=== PATIENT | male | born 1960 | race Caucasian/White ===

== ENCOUNTER → 2017-12-22 | Outpatient (CLI) | payer OTHER ==
[~2017-12-22] MED LIST: CLON-365 PO; LISI1TAB7 PO; OXYC5TAB2 PO; REGADENOSON 0.4 MG/5 ML SYRINGE ONE
== END | disposition home or self-care (01) ==
LOC: CFH 09:33
PROVIDERS: ATTEND Physician Assistant Medical
DX: R07.89 Other chest pain (principal)
CPT/HCPCS: 78452; 93017; A9502; J2785

== ENCOUNTER 2018-06-05 10:55 | Emergency (ER) | payer OTHER ==
[~2018-06-05] VITALS: Ht 172.7 cm; Wt 99.1 kg
[~2018-06-05 10:55] MED LIST changes: -CLON-365 PO; +CLON1TAB11 PO; -REGADENOSON 0.4 MG/5 ML SYRINGE ONE
[2018-06-05] MEDS ORDERED: ASPI-515 PO (11:30)
[2018-06-05] MEDS ORDERED: HYDR12.53 PO (11:31)
[2018-06-05] MEDS ORDERED: CYCL5TAB PO (11:31)
[2018-06-05] MEDS ORDERED: HIGH CHOL (11:31)
[2018-06-05] MEDS ORDERED: LISI2.5T PO (11:31)
[2018-06-05] MEDS ORDERED: GABA-827 PO (11:32)
[2018-06-05] MEDS ORDERED: NAPR220C2 PO (11:33)
[2018-06-05] MEDS ORDERED: AMIT10TA PO (11:33)
[2018-06-05 11:57] LABS: BASOPHILS # (AUTO) 0.04 x10^3/uL (0-0.1); BASOPHILS % (AUTO) 0 % (0-1); EOSINOPHILS # (AUTO) 0.32 x10^3/uL (0-0.4); EOSINOPHILS % (AUTO) 3 % (1-7); LYMPHOCYTES # (AUTO) 2.39 x10^3/uL (1-3.4); LYMPHOCYTES % (AUTO) 24 % (22-44); MD NO; MEAN CORPUSCULAR HGB CONC 34.5 g/dL (33.2-36.2); MEAN CORPUSCULAR VOLUME 92.6 fL (81-97); MEAN PLATELET VOLUME 9.3 fL (7.4-10.4); MONOCYTES # (AUTO) 0.69 x10^3/uL (0.2-0.8); MONOCYTES % (AUTO) 7 % (2-9); NEUTROPHILS # (AUTO) 6.54 x10^3/uL (1.8-6.8); NEUTROPHILS % (AUTO) 66 % (42-75); PLATELET COUNT 222 x10^3/uL (130-400); RED BLOOD COUNT 4.83 x10^6/uL (4.38-5.82); RED CELL DISTRIBUTION WIDTH 13.3 % (9.4-14.8)
[2018-06-05 12:11] LABS: ALBUMIN 3.8 g/dL (3.4-5.0); ANION GAP 9 mmol/L (5-15); CALCIUM 8.8 mg/dL (8.5-10.1); CHLORIDE 104 mmol/L (98-107)
[2018-06-05 12:17] LABS: ALANINE AMINOTRANSFERASE 42 U/L (12-78); ALKALINE PHOSPHATASE 73 U/L (45-117); BILIRUBIN,TOTAL 0.5 mg/dL (0.2-1.0); CREATININE 0.88 mg/dL (0.7-1.3); TOTAL PROTEIN 7.6 g/dL (6.4-8.2); TROPONIN I < 0.015 ng/mL (0.000-0.045)
[2018-06-05 13:24] VITALS: BP 152/77
== END 2018-06-05 13:29 | disposition home or self-care (01) ==
LOC: ED 11:19
DX: S29.011A Strain of muscle and tendon of front wall of thorax, initial encounter (principal); M94.0 Chondrocostal junction syndrome [Tietze]; I11.9 Hypertensive heart disease without heart failure; G89.29 Other chronic pain; Z90.89 Acquired absence of other organs; Z87.891 Personal history of nicotine dependence; X58.XXXA Exposure to other specified factors, initial encounter; Y93.89 Activity, other specified; Y92.89 Other specified places as the place of occurrence of the external cause; Y99.8 Other external cause status
CPT/HCPCS: 36415; 71046; 80053; 84484; 85025; 93005; 99285

== ENCOUNTER 2019-03-07 06:12 | Day surgery (SDC) | payer OTHER ==
[~2019-03-07] VITALS: Ht 170.2 cm; Wt 108.3 kg
[2019-03-07 06:49] VITALS: BP 112/78
== END 2019-03-07 10:50 | disposition home or self-care (01) ==
LOC: OUT 06:12 → EDSTATUS 08:00 → OUT 10:50
PROVIDERS: ATTEND Internal Medicine Geriatric Medicine
DX: K73.9 Chronic hepatitis, unspecified (principal); K76.0 Fatty (change of) liver, not elsewhere classified; K74.60 Unspecified cirrhosis of liver; I10 Essential (primary) hypertension; J44.9 Chronic obstructive pulmonary disease, unspecified; E66.9 Obesity, unspecified; Z68.36 Body mass index [BMI] 36.0-36.9, adult; Z79.899 Other long term (current) drug therapy; Z87.891 Personal history of nicotine dependence; Z98.1 Arthrodesis status; Z98.890 Other specified postprocedural states; Z82.49 Family history of ischemic heart disease and other diseases of the circulatory system
CPT/HCPCS: 36415; 47000; 77012; 85610; 88307; 88313; 99156; 99157; J2250; J3010; J7030; J2310

== ENCOUNTER → 2019-08-16 | Outpatient (CLI) | payer OTHER ==
[~2019-08-16] MED LIST changes: +AMIT10TA PO; +AMLO-150 PO; +ASPI-515 PO; +ATOR40TA PO; +CYCL5TAB PO; +GABA-827 PO; +GABA300C10 PO; +HIGH CHOL; +HYDR12.517 PO; +LISI1TAB20 PO; -LISI1TAB7 PO; +LISI2.5T PO; +NAPR220C2 PO
== END | disposition home or self-care (01) ==
LOC: CFH 08:26
PROVIDERS: ATTEND Internal Medicine Cardiovascular Disease
DX: I25.10 Atherosclerotic heart disease of native coronary artery without angina pectoris (principal); I10 Essential (primary) hypertension; I25.2 Old myocardial infarction
CPT/HCPCS: 78452; 93017; A9502